=== PATIENT | female | born 1985 | race African-American/Black ===

== ENCOUNTER 2016-05-31 22:55 | Emergency (ER) | payer MEDICAID, OTHER ==
[~2016-05-31] VITALS: Ht 157.5 cm; Wt 75.0 kg
[2016-06-01] MEDS ORDERED: KETOROLAC TROMETHAMINE 30 MG/ML VIAL IM ONE (01:30)
[2016-06-01 02:22] VITALS: BP 126/72
== END 2016-06-01 02:29 | disposition home or self-care (01) ==
LOC: EMS 22:58
DX: S83.001A Unspecified subluxation of right patella, initial encounter (principal); J45.909 Unspecified asthma, uncomplicated; M25.461 Effusion, right knee; Z88.0 Allergy status to penicillin; X58.XXXA Exposure to other specified factors, initial encounter; Y93.89 Activity, other specified; Y92.89 Other specified places as the place of occurrence of the external cause; Y99.8 Other external cause status
CPT/HCPCS: 29530; 73562; 96372; 99284; J1885

== ENCOUNTER 2016-06-19 22:24 | Emergency (ER) | payer OTHER ==
[~2016-06-19] VITALS: Ht 157.5 cm; Wt 70.5 kg
[2016-06-19] MEDS ORDERED: DEXAMETHASONE SOD PHOS 4 MG/ML 5 ML VIAL IM ONE (23:30)
[2016-06-19 23:35] VITALS: BP 115/69
== END 2016-06-19 23:40 | disposition home or self-care (01) ==
LOC: EMS 22:26
DX: S90.465A Insect bite (nonvenomous), left lesser toe(s), initial encounter (principal); J45.909 Unspecified asthma, uncomplicated; Z88.0 Allergy status to penicillin; W57.XXXA Bitten or stung by nonvenomous insect and other nonvenomous arthropods, initial encounter; Y93.89 Activity, other specified; Y92.89 Other specified places as the place of occurrence of the external cause; Y99.8 Other external cause status
CPT/HCPCS: 96372; 99283; J1100

== ENCOUNTER 2017-01-30 15:55 | Emergency (ER) | payer SELFPAY ==
[~2017-01-30] VITALS: Ht 154.9 cm; Wt 68.2 kg
[2017-01-30 18:50] VITALS: BP 124/60
== END 2017-01-30 18:53 | disposition home or self-care (01) ==
LOC: EMS 15:58
DX: S13.4XXA Sprain of ligaments of cervical spine, initial encounter (principal); J45.909 Unspecified asthma, uncomplicated; Z88.0 Allergy status to penicillin; V49.40XA Driver injured in collision with unspecified motor vehicles in traffic accident, initial encounter; Y93.89 Activity, other specified; Y92.481 Parking lot as the place of occurrence of the external cause; Y99.8 Other external cause status
CPT/HCPCS: 99283